=== PATIENT | female | born 1995 | race Caucasian/White ===

== ENCOUNTER 2020-10-03 19:40 | Emergency (ER) | payer OTHER, MEDICAID ==
[~2020-10-03] VITALS: Ht 167.6 cm; Wt 79.4 kg
[2020-10-03 19:44] VITALS: BP_SYST 146
[2020-10-03] MEDS ORDERED: KETOROLAC TROMETHAMINE 60 MG/2 ML VIAL IM ONE (20:00)
[2020-10-03] MEDS ORDERED: HYDR-3917 PO (20:18)
[2020-10-03] MEDS ORDERED: IBUP-1971 PO (20:18)
[2020-10-03 20:34] VITALS: BP_SYST 146
== END 2020-10-03 20:34 | disposition home or self-care (01) ==
LOC: SED 19:40
DX: S13.4XXA Sprain of ligaments of cervical spine, initial encounter (principal); M54.5 Low back pain; V49.49XA Driver injured in collision with other motor vehicles in traffic accident, initial encounter; Y93.89 Activity, other specified; Y92.89 Other specified places as the place of occurrence of the external cause; Y99.8 Other external cause status
CPT/HCPCS: 81025; 96372; 99283; J1885